=== PATIENT | male | born 1975 | race Caucasian/White ===

== ENCOUNTER 2021-08-14 10:01 | Inpatient (IN) | payer MEDICAID ==
[~2021-08-14] VITALS: Ht 167.6 cm; Wt 68.2 kg
[2021-08-14] MEDS ORDERED: LORazepam 2 MG/ML VIAL IM ONE (11:05)
[2021-08-14] MEDS ORDERED: OLANZapine INTRAMUSCULAR 10MG VIAL IM ONE (11:05)
[2021-08-14] MEDS ORDERED: LORazepam 2 MG/ML VIAL As Ordered ONE (11:06)
[2021-08-14 11:28] LABS: HEMATOCRIT 46.1 % (42.0-52.0); HEMOGLOBIN 15.6 g/dl (13.5-17.5); MEAN CORPUSCULAR HEMOGLOBIN 31.1 pg (27.0-33.0); MEAN CORPUSCULAR HGB CONC 33.8 g/dl (32.0-36.5); MEAN CORPUSCULAR VOLUME 91.8 fl (80.0-96.0); PLATELET COUNT, AUTOMATED 323 10^3/uL (150-450); RED BLOOD COUNT 5.02 10^6/uL (4.30-6.10); WHITE BLOOD COUNT 13.2 10^3/uL (4.0-10.0)
[2021-08-14 12:07] LABS: ACETAMINOPHEN LEVEL < 2.0 UG/ML (10.0-30.0); ALBUMIN 4.4 GM/DL (3.2-5.2); ALT/SGPT 19 U/L (12-78); BILIRUBIN,DIRECT 0.1 MG/DL (0.0-0.2); BILIRUBIN,TOTAL 0.5 MG/DL (0.2-1.0); BLOOD UREA NITROGEN 10 MG/DL (7-18); CALCIUM LEVEL 9.8 MG/DL (8.5-10.1); CARBON DIOXIDE LEVEL 23 MEQ/L (21-32); CHLORIDE LEVEL 102 MEQ/L (98-107); CREATININE FOR GFR 1.03 MG/DL (0.70-1.30); ETHYL ALCOHOL (ETHANOL) 0.003 % (0.000-0.010); GLOMERULAR FILTRATION RATE > 60.0 (>60); GLUCOSE, FASTING 123 MG/DL (70-100); POTASSIUM SERUM 3.4 MEQ/L (3.5-5.1); SALICYLATE LEVEL 5.9 MG/DL (5.0-30.0); SODIUM LEVEL 136 MEQ/L (136-145); THYROID STIMULATING HORMONE 0.695 uIU/ML (0.358-3.740); TOTAL PROTEIN 7.4 GM/DL (6.4-8.2)
[2021-08-14 15:09] LABS: AMPHETAMINES LEVEL URINE NEGATIVE (NEGATIVE); BARBITURATES URINE NEGATIVE (NEGATIVE); BENZODIAZEPINES URINE NEGATIVE (NEGATIVE); CANNABINOIDS URINE NEGATIVE (NEGATIVE); COCAINE METABOLITE URINE NEGATIVE (NEGATIVE); METHADONE URINE NEGATIVE (NEGATIVE); OPIATES URINE NEGATIVE (NEGATIVE); PHENCYCLIDINE URINE NEGATIVE (NEGATIVE)
[2021-08-15] MEDS ORDERED: HOME MED LIST COMPLETE! XX SCH (09:30)
[2021-08-15 14:23] LABS: RSV AMPLIFICATION NEGATIVE (NEGATIVE)
[2021-08-16] MEDS ORDERED: ACETAMINOPHEN TAB 650MG DOSE (2X325MG) PO PRN (15:10)
[2021-08-16] MEDS ORDERED: OLANZapine ORAL DISINTEGRATING TAB 5MG PO PRN (15:10)
[2021-08-16] MEDS ORDERED: NICOTINE 21MG/24HR 1 EA TRANSDERMAL TD PRN (15:10)
[2021-08-16] MEDS ORDERED: traZODone 50 MG TAB PO PRN (15:10)
[2021-08-16] MEDS ORDERED: MOM 30ML SUSPENSION UDC PO PRN (15:10)
[2021-08-16] MEDS ORDERED: MAALOX 30 ML SUSP *UDC PO PRN (15:10)
[2021-08-16 15:53] VITALS: BP 120/70
[2021-08-17 06:40] VITALS: BP 118/60
[2021-08-17] MEDS ORDERED: NICOTINE 21MG/24HR 1 EA TRANSDERMAL TD SCH (09:00)
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
[2021-08-17] MEDS ORDERED: NICO21PAT TD (13:03)
[2021-08-17] MEDS ORDERED: ACETAMINOPHEN 500 MG TAB PO SCH (13:15)
--- NOTE | 2021-08-17 13:24 | MHDSPDOC ---
[facility] Discharge Summary Discharge Summary DATE OF ADMISSION: Aug 16, 2021 at 15:10 DATE OF DISCHARGE: August 17, 2021 Discharge diagnoses: Substance-induced psychotic disorder Methamphetamine use disorder Tobacco use disorder Alcohol use disorder, in full remission Opioid use disorder, in early remission Reason for admission: Patient is a 46 -year-old , male, who has a reported past psychiatric hx of opioid use disorder. was trying to get in his car by his place in [place], [place], there was no agarwal in his car and the police took him in. States he they brought him in and started paperwork then he "flipped out" states "thought they were going to take his fingerprints then he was brought to the ED". States the police "keep messing with me and pushing my buttons". Reports he lives with a friend Laly, states he does not have a phone numbers he can remember and has not had his phone for the last few weeks. Reports using methamphetamine "a few days ago". States has had AVH, paranoia while taking methamphetamine only and believes this is what lead to admission, states used 4-5 days ago, was using a couple times a day "on and off" for a few weeks. Patient denies SI/HI. Toxicology screen negative. Per chart review near [facility] police reported that no nerve or vehicle flag him down, stating car was stolen and that the patient had taken the vehicle for a darion ride, left and then attempted to get another vehicle. 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 Upon interview patient says that he was upset for being taken to the police station and likely coming down from amphetamine intoxication. Vital signs: See below Consultants involved: See medical H&P by hospitalist Treatment and progress on the unit: Patient was admitted to the [facility] on a 9.39 legal status and was afforded the following treatment modalities: 1. Individual therapy 2. Group therapy 3. Medication management 4. Milieu therapy 5. Safe environment Hospital course: Patient was admitted to the [facility] on a 9.39 legal status. Was medically cleared prior to coming up to the [facility]. On 08/14/21, in the ED had been medically and chemically restrained as with lorazepam and 10 mg olanzapine, due to patient becoming irritable and wanting to elope. Patient reports he has been staying a car, in context of methamphetamine use, reports can be paranoid and having auditory hallucinations due to the fact he been using meth for 2 months consecutively approximately 2 times per day. States this is likely what led to him having impulsive behavior around these vehicles, while intoxicated. On interview 3 days after receiving any antipsychotic medication patient is calm, relaxed, good eye contact, alert and oriented x3, does not appear internally preoccupied, denies any hallucinations, delusions, does not appear paranoid and denies any paranoia. Denies acute physical symptoms of substance w ithdrawal. Denies any past psychiatric history, but is open about his history of substance abuse including attending [facility] several years ago for opioid use. Patient states he is future oriented and wants to go back to work, return home to his apartment and clean the apartment. Denies mood anxiety and intrusive thoughts which improved with treatment. Today on discharge patient denied depression, anxiety, insomnia, suicidal or homicidal ideations intent or plan, hallucinations, delusions. Patient was discharged home with follow-up. Patient felt safe for discharge. Was offered continued stay on voluntary admission but refused. Discharge assessment: On today's interview patient is alert and oriented, dressed appropriately. Hygiene and grooming is well-kept. Smiles on approach and is pleasant and engaged on interview. Denies depression and anxiety. Denies suicidal homicidal ideation, intent or planning. Denies and is not observed with angel or psychotic symptoms of delusions, hallucinations, bizarre thinking, obsessions, paranoia, ruminations, illogical thoughts, flight of ideas or having poor insight or judgment. Patient has normal mentation, declines further hospitalization of voluntary status and meets criteria for discharge today, patient encouraged to return the hospital if symptoms worsen or change and encouraged to call unit if they feel they need provider's questions to be answered or help with medications or care. Mental status: General Appearance: well groomed, other (tattoos) Build: average Demeanor: average Eye Contact: average Activity: average Behavior: cooperative Speech: clear, slow, low in volume Mood: euthymic Mood: "fine" Affect: full Thought Process: logical/linear, slow Thought Content (Delusions): none reported, denies SI, intent or plan HI, intent or plan. Denies AVH, denies paranoia, and the symptoms are not observed. Thought Content (Other): none reported Thought Content (Aggressive): none reported Perception (Hallucinations): none reported Cognition (Impairment of): none reported Cognition(Intelligence Est.): average Oriented: Awake, Alert, Oriented times three Insight: good Judgment: Fair Psychosis: Denies Medications on discharge: see medication reconciliation: CSSRS on discharge: Wish to be : No nonspecific active suicidal thoughts: No lifetime attempts: 0 interrupted attempts: 0 aborted attempts: 0 preparatory acts or behavior: None Taking into consideration safety state, status, modifiable, non-modifiable risk factors patient is at low risk on discharge for suicide according to [facility] suicide evaluation. PLAN/FOLLOWUP ARRANGEMENTS: Follow Up Care Education Label * Medical * Medical Follow Up Patient declined to sign release Follow Up Care Education Label * Mental Health Appt 1 * [facility] * Address of Clinic or Practice [address] [place] [address] * * Additional information Walk in hours Friday and Friday from 9am-12pm Walk in hours Friday and from 3pm-6pm Follow Up Care Education Label * Mental Health Appt 2 * [facility] * Address of Clinic or Practice [address] [place] [address] * * Additional information Walk in hours Friday through Friday from 745am to 1pm Follow Up Care Education Label * Chemical Dependency Appt1 * Chemical Dependency [facility] * Address of Clinic or Practice [address] [place] [address] * * Additional information Walk in hours Friday through Friday from 8am to 12pm and 1pm to 3pm The amount of time spent in the coordination of care for this patient was approximately 40 minutes. ETOH/Disorder Med Rx ETOH/DRUG DISORDER RX: Offrd @ d/c & pt refused Vital Signs/I&Os Vital Signs Date Time Temp Pulse Resp B/P (MAP) Pulse Ox O2 Delivery O2 Flow Rate FiO2 08/17/21 06:40 97.5 71 18 118/60 (79) 100 Room Air Medications Scheduled PRN Nicotine (Nicotine Patch) 21 Mg Patch.td24, 1 PATCH TD DAILY PRN for NICOTINE WITHDRAWAL, #7 Allergies Coded Allergies: No Known Allergies (Unverified , 08/14/21) NITIN SHRESTHA MD Aug 17, 2021 13:24
--- NOTE | 2021-08-17 14:03 | MHHPE ---
[facility] HISTORY AND PHYSICAL DATE OF ADMISSION: 08/16/2021 CHIEF COMPLAINT: "Psychosis" HISTORY OF PRESENTING ILLNESS: This is a 46-year-old with substance-induced psychotic disorder, methamphetamine use, tobacco use, alcohol use, and opioid abuse admitted to the Inpatient Mental Health Unit due to substance-induced psychosis. Hospitalist was asked to assess for any medical complaints. The patient complains of right wrist pain without any traumatic injury that he has had for the past two years. It usually gets better when he takes nonsteroidal anti-inflammatories. The patient has not had any decrease in his strength. He has had some increasing paresthesias from the thumb, index finger, and half of the third finger, but has had no significant debilities with activities of daily living. He otherwise denies any weight gain, weight loss, changes in appetite, nausea, vomiting, diarrhea, abdominal pain, cough, fever, chills, shortness of breath, palpitations, lightheadedness, dizziness, weight gain, weight loss, changes in sleep habits, dysuria, urgency, frequency, polyuria, polydipsia, polyphagia, weakness, joint pain aside from the right wrist, muscle aches, skin rashes. PAST MEDICAL HISTORY: 1. Paranoia. 2. Post-traumatic stress disorder. 3. Substance-induced psychotic disorder. 4. Methamphetamine abuse. 5. Tobacco abuse, 6. Alcohol abuse. 7. Opioid abuse. PAST SURGICAL HISTORY: None. ALLERGIES: Please see the chart. HOSPITAL MEDICATIONS: 1. Nicotine patch. 2. Mylanta. 3. Milk of Magnesia. 4. Tylenol. 5. Zyprexa. 6. Trazodone. 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 FAMILY HISTORY: Father is . Mother is alive with diabetes, age 70. REVIEW OF SYSTEMS: Per HPI, 12 point review of systems otherwise negative. PHYSICAL EXAMINATION: VITAL SIGNS: Temperature 97.5, pulse 71, respiratory rate 18, Blood pressure 118/60, 100% on room air. GENERAL: The patient is awake, alert, oriented x3, has multiple tattoos on the right arm. The right wrist has no effusion, full range of motion in flexion and extension, abduction, adduction. The patient has no erythema or traumatic injury, open lesions on the right wrist. LUNGS: Clear to auscultation. No wheezing, rales, or rhonchi. HEART: S1, S2, sinus rhythm. ABDOMEN: Soft, nontender, nondistended. EXTREMITIES: No clubbing, cyanosis, or pitting edema. LABORATORY DATA: Laboratory data has been reviewed. ASSESSMENT: This is a 46-year-old with substance-induced psychosis and polysubstance abuse, tobacco, previous history of alcohol abuse, and recreational drug use, admitted to the Inpatient Mental Health Unit due to psychosis. IMPRESSION: 1. Right wrist pain, rule out carpal tunnel. Trial of night splint if possible, NSAID use, and outpatient orthopedic referral for EMG studies to confirm carpal tunnel, possible physical therapy and conservative treatment. If not, may need carpal tunnel release surgery. 2. Psychosis and polysubstance abuse. Tobacco cessation counseling has been provided. Nicotine replacement therapy has been provided. Psychosis to be managed by primary psychiatric team. HECTOR
--- NOTE | 2021-08-18 07:35 | ECGEPIP ---
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
== END 2021-08-17 15:15 | disposition home or self-care (01) | DRG 773 ==
LOC: M ED 10:01 → M ED INP 08-16 15:10 → M PSY 08-16 15:48
PROVIDERS: ADMIT Student in an Organized Health Care Education/Training Program; ATTEND Student in an Organized Health Care Education/Training Program
DX: F15.159 Other stimulant abuse with stimulant-induced psychotic disorder, unspecified (principal); Z78.1 Physical restraint status; F11.11 Opioid abuse, in remission; F10.11 Alcohol abuse, in remission; F17.210 Nicotine dependence, cigarettes, uncomplicated